=== PATIENT | male | born 1965 | race Two or more races ===

== ENCOUNTER 2018-12-17 09:45 | Emergency (ER) | payer MEDICAID, OTHER ==
[~2018-12-17] VITALS: Ht 182.9 cm; Wt 186.0 kg
[2018-12-17 10:09] VITALS: BP 157/95
[2018-12-17] MEDS ORDERED: KETOROLAC TROMETH 60MG/2ML VIAL IM ONE (12:00)
== END 2018-12-17 12:24 | disposition home or self-care (01) ==
LOC: ER 10:35
DX: G89.29 Other chronic pain (principal); M54.2 Cervicalgia
CPT/HCPCS: 96372; 99283; J1885

== ENCOUNTER 2018-12-27 11:39 | Emergency (ER) | payer MEDICAID ==
[~2018-12-27] VITALS: Ht 182.9 cm; Wt 186.0 kg
[2018-12-27 16:06] VITALS: BP 151/96
== END 2018-12-27 16:05 | disposition home or self-care (01) ==
LOC: ER 11:39
DX: S00.83XA Contusion of other part of head, initial encounter (principal); M47.892 Other spondylosis, cervical region; Y04.2XXA Assault by strike against or bumped into by another person, initial encounter; Y93.89 Activity, other specified; Y92.89 Other specified places as the place of occurrence of the external cause; Y99.8 Other external cause status
CPT/HCPCS: 70486; 72125